=== PATIENT | female | born 1945 | race Caucasian/White ===

== ENCOUNTER 2016-11-25 08:33 | Inpatient (IN) | payer OTHER ==
[2016-11-25] MEDS ORDERED: NS 1,000 ML IV ONE (09:26)
[2016-11-25] MEDS ORDERED: MORPHINE IV ONE (09:26)
[2016-11-25] MEDS ORDERED: ZOFRAN IV ONE (09:26)
--- NOTE | 2016-11-25 09:59 | PROVIDER DOCUMENTATION ---
Addendum entered and electronically signed by Katie Claros Scribe 11:12: Departure - Departure Time of Disposition Order: 11:11 DIAGNOSIS: Ureteral stone, Hydronephrosis of left kidney Disposition: ADMITTED INPATIENT 09 Condition: Stable Referrals: Kenroy Neal MD [Primary Care Provider] - Original Note: HPI-Abdominal Pain/GI Problem - General Source: patient - History of Present Illness-ABD Abdominal Pain Onset Location: reports: LLQ, epigastric Pain Radiation: reports: flank Quality of Pain: reports: sharp Severity in ED: reports: mild Onset/Duration: reports: this morning Timing: reports: still present Activities at Onset: reports: light activity Modifying Factors: improves with: massage, movement, palpation Associated Symptoms: reports: vomiting Last BM: unsure Dark Stools Present?: reports: none noticed Bruising or Bleeding Gums?: No Similar Symptoms Previously?: No Recently seen or treated by another doctor?: No <Katie Claros - Last Filed: 11/25/16 11:11> <Hiro Mistry - Last Filed: 11/25/16 11:22> - General Chief Complaint: Abdominal Pain Stated Complaint: back pain, threwing up Time Seen by Provider: 11/25/16 09:02 Allergies/Adverse Reactions: Patient Allergies Allergy/AdvReac Type Severity Reaction Status Date / Time Sulfa (Sulfonamide Allergy RASH Verified 11/25/16 09:09 Antibiotics) - History of Present Illness-ABD Nature of Presenting Problems: Pt is a 71 yof who came to the ED with a cc of back and abdominal pain. Pt reports she got out of bed at 5:30 this morning with back and abdominal pain. Pt reports she had her gallbladder removed. (Katie Claros) Review of Systems - Adult - REVIEW OF SYSTEMS - ADULT Constitutional: denies: chills, fever Eyes: denies: blurred vision, double vision Ears, Nose, Mouth & Throat: reports: no symptoms reported Cardiovascular: denies: orthopnea, poor circulation Respiratory: reports: no symptoms reported Gastrointestinal: reports: abdominal pain, vomiting. denies: difficulty swallowing, frequent heartburn, nausea Genitourinary: reports: flank pain. denies: hematuria, hesitency Musculoskeletal: denies: joint pain, joint swelling Integumentary: reports: no symptoms reported Neurological: reports: no symptoms reported Psychiatric: reports: no symptoms reported Endocrine: reports: no symptoms reported Hematologic/Lymphatic: reports: no symptoms reported Allergic/Immunologic: reports: no symptoms reported All Other Systems: Reviewed and Negative <HarlanKatie Filed: 11/25/16 11:11> Past History - Adult - PAST MEDICAL HISTORY-ADULT Review of Records: reports: Old Records Reviewed, Nursing Assessment Review Major Childhood Illnesses: reports: denies history Cardiovascular: reports: hyperlipidemia Respiratory: reports: denies history Gastrointestinal: reports: denies history Obstetrical/Gynecological: reports: denies history Genitourinary: reports: denies history Musculoskeletal: reports: denies history Neurological: reports: denies history Endocrine/Immune: reports: thyroid disorder Other Conditions: reports: denies history - IMMUNIZATION STATUS Childhood Immunizations: See Nurse Assessment Flu Vaccine: See Nurse Assessment - FAMILY HISTORY Family History: reviewed, not pertinent <HarlanKatie Filed: 11/25/16 11:11> Physical Exam-General - PHYSICAL EXAM-ADULT Initial Vital Signs Reviewed: Yes - CONSTITUTIONAL General Appearance: appears well, alert, no apparent distress - EYES Eyes: PERRL/EOMI, pink conjunctivae - HEAD, EARS, NOSE, MOUTH & THROAT HENMT: normocephalic/atraumatic, moist mucous membranes, normal ENT inspection - NECK Neck: non-tender, full range of motion, normal inspection - RESPIRATORY Respiratory: chest non-tender, lungs clear, normal breath sounds - CARDIOVASCULAR Cardiovascular: normal peripheral pulses, regular rate, rhythm, no edema - GASTROINTESTINAL (ABDOMEN) Abdominal Exam: normal bowel sounds, soft, tenderness - LYMPHATIC Lymphatic: no adenopathy - MUSCULOSKELETAL Back Exam: normal inspection, no CVA tenderness, no vertebral tenderness Extremity: normal range of motion, non-tender, normal gait - SKIN Integumentary: normal color, normal turgor, warm/dry - NEUROLOGIC Neurologic: grossly normal, no motor/sensory deficits - PSYCHIATRIC Psych/Mental Status: normal mood/affect, normal thought content, normal thought process, oriented x 3 <Katie Claros Filed: 11/25/16 11:11> Progress - CT/MRI 1 CT Study: Renal Stone CT Results: 3.2mm stone at left uvj with mild left hydro <Katie Claros - Last Filed: 11/25/16 11:11> - REASSESSMENT Reassessment #1 Time Reassessed: 10:57 Status: worsening (Pt is still in pain and she has hydro on CT. Will give IV Dilaudid and will admit.) - CONSULTS/PCP/HOSPITALIST Notification Time Discussed: 11:20 Reason/Comments: Admit to Dr. Arzate Consult Disposition: Will see in ED, Admit <Javier Mistryshola X - Last Filed: 11/25/16 11:22> - PLAN OF CARE/RESULTS Progress/Plan/Lab Results: Vital Signs - 24 hr 11/25/16 08:35 Temperature 97.5 F L Pulse Rate 70 Respiratory 18 Rate Blood Pressure 157/71 O2 Sat by Pulse 99 Oximetry Orders Category Date Time Status Saline Loc DIRECTED Care 11/25/16 09:26 Active NPO Diet 11/25/16 09:26 Active RENAL STONE SEARCH [CT] Stat Exams 11/25/16 09:26 Taken AMYLASE [CHEM] Stat Lab 11/25/16 09:48 Ordered CBC WITH ELECTRONIC DIFF [HEME] Stat Lab 11/25/16 09:48 Ordered COMPREHENSIVE METABOLIC PANEL [CHEM] Stat Lab 11/25/16 09:48 Ordered LIPASE [CHEM] Stat Lab 11/25/16 09:48 Ordered MAGNESIUM [CHEM] Stat Lab 11/25/16 09:48 Ordered URINALYSIS W/POSS RFLX CULT [URINALYSIS] Stat Lab 11/25/16 09:48 Ordered 0.9% Sodium Chloride Inj [Ns] 1,000 ml Med 11/25/16 09:26 Active IV 999 mls/hr Morphine Med 11/25/16 09:26 Discontinued 4 mg IV NOW ONE Ondansetron [Zofran] Med 11/25/16 09:26 Discontinued 4 mg IV NOW ONE (Katie Claros) Laboratory Results - last 24 hr 11/25/16 11/25/16 11/25/16 09:45 09:45 09:45 WBC 10.21 RBC 4.33 Hgb 13.1 Hct 39.4 MCV 91.0 MCH 30.3 MCHC 33.2 RDW Std Deviation 12.8 Plt Count 302 MPV 11.0 H Immature Gran % (Auto) 0.2 Neut % (Auto) 82.9 H Lymph % (Auto) 12.4 L Jewell % (Auto) 3.5 Eos % (Auto) 0.7 Baso % (Auto) 0.3 Immature Gran # (Auto) 0.02 Neut # (Auto) 8.46 H Lymph # (Auto) 1.27 Jewell # (Auto) 0.36 Eos # (Auto) 0.07 Baso # (Auto) 0.03 Sodium 141 Potassium 3.8 Chloride 101 Carbon Dioxide 24 L Anion Gap 16 BUN 20 Creatinine 1.2 H Estimated GFR/1.73 m2 44 BUN/Creatinine Ratio 17 Glucose 140 H Calculated Osmolality 286 Calcium 10.1 Magnesium 1.9 Total Bilirubin 0.45 AST 38 H ALT 33 Alkaline Phosphatase 64 Total Protein 7.8 Albumin 4.6 Globulin 3.2 Albumin/Globulin Ratio 1.4 Amylase 73 Lipase 22 Urine Source CLEAN CATCH Urine Color YELLOW Urine Turbidity CLEAR Urine pH 6.0 Ur Specific Merrill 1.015 Urine Protein NEGATIVE Ur Glucose (Stick) NEGATIVE Ur Ketones (Stick) TRACE A Urine Blood TRACE A Urine Nitrite NEGATIVE Urine Bilirubin NEGATIVE Urobilinogen Dipstick NORMAL Urine Leukocytes TRACE A Urine WBC (Auto) <10 Urine RBC (Auto) <10 U Epithel Cells (Auto) <10 Urine Bacteria (Auto) NEGATIVE Vital Signs Temp Pulse Resp BP Pulse Ox 11/25/16 08:35 97.5 F L 70 18 157/71 99 Sulfa (Sulfonamide Antibiotics) Allergy (Verified 11/25/16 09:09) RASH Dietary Diet NPO Start Sat Nov 25 925 Laboratory 11/25/16 11/25/16 11/25/16 09:45 09:45 09:45 WBC 10.21 RBC 4.33 Hgb 13.1 Hct 39.4 MCV 91.0 MCH 30.3 MCHC 33.2 RDW Std Deviation 12.8 Plt Count 302 MPV 11.0 H Immature Gran % (Auto) 0.2 Neut % (Auto) 82.9 H Lymph % (Auto) 12.4 L Jewell % (Auto) 3.5 Eos % (Auto) 0.7 Baso % (Auto) 0.3 Immature Gran # (Auto) 0.02 Neut # (Auto) 8.46 H Lymph # (Auto) 1.27 Jewell # (Auto) 0.36 Eos # (Auto) 0.07 Baso # (Auto) 0.03 Sodium 141 Potassium 3.8 Chloride 101 Carbon Dioxide 24 L Anion Gap 16 BUN 20 Creatinine 1.2 H Estimated GFR/1.73 m2 44 BUN/Creatinine Ratio 17 Glucose 140 H Calculated Osmolality 286 Calcium 10.1 Magnesium 1.9 Total Bilirubin 0.45 AST 38 H ALT 33 Alkaline Phosphatase 64 Total Protein 7.8 Albumin 4.6 Globulin 3.2 Albumin/Globulin Ratio 1.4 Amylase 73 Lipase 22 Urine Source CLEAN CATCH Urine Color YELLOW Urine Turbidity CLEAR Urine pH 6.0 Ur Specific Merrill 1.015 Urine Protein NEGATIVE Ur Glucose (Stick) NEGATIVE Ur Ketones (Stick) TRACE A Urine Blood TRACE A Urine Nitrite NEGATIVE Urine Bilirubin NEGATIVE Urobilinogen Dipstick NORMAL Urine Leukocytes TRACE A Urine WBC (Auto) <10 Urine RBC (Auto) <10 U Epithel Cells (Auto) <10 Urine Bacteria (Auto) NEGATIVE Vital Signs Temp Pulse Resp BP Pulse Ox 11/25/16 08:35 97.5 F L 70 18 157/71 99 Sulfa (Sulfonamide Antibiotics) Allergy (Verified 11/25/16 09:09) RASH Dietary Diet NPO Start Sat Nov 25 925 Laboratory 11/25/16 11/25/16 11/25/16 09:45 09:45 09:45 WBC 10.21 RBC 4.33 Hgb 13.1 Hct 39.4 MCV 91.0 MCH 30.3 MCHC 33.2 RDW Std Deviation 12.8 Plt Count 302 MPV 11.0 H Immature Gran % (Auto) 0.2 Neut % (Auto) 82.9 H Lymph % (Auto) 12.4 L Jewell % (Auto) 3.5 Eos % (Auto) 0.7 Baso % (Auto) 0.3 Immature Gran # (Auto) 0.02 Neut # (Auto) 8.46 H Lymph # (Auto) 1.27 Jewell # (Auto) 0.36 Eos # (Auto) 0.07 Baso # (Auto) 0.03 Sodium 141 Potassium 3.8 Chloride 101 Carbon Dioxide 24 L Anion Gap 16 BUN 20 Creatinine 1.2 H Estimated GFR/1.73 m2 44 BUN/Creatinine Ratio 17 Glucose 140 H Calculated Osmolality 286 Calcium 10.1 Magnesium 1.9 Total Bilirubin 0.45 AST 38 H ALT 33 Alkaline Phosphatase 64 Total Protein 7.8 Albumin 4.6 Globulin 3.2 Albumin/Globulin Ratio 1.4 Amylase 73 Lipase 22 Urine Source CLEAN CATCH Urine Color YELLOW Urine Turbidity CLEAR Urine pH 6.0 Ur Specific Merrill 1.015 Urine Protein NEGATIVE Ur Glucose (Stick) NEGATIVE Ur Ketones (Stick) TRACE A Urine Blood TRACE A Urine Nitrite NEGATIVE Urine Bilirubin NEGATIVE Urobilinogen Dipstick NORMAL Urine Leukocytes TRACE A Urine WBC (Auto) <10 Urine RBC (Auto) <10 U Epithel Cells (Auto) <10 Urine Bacteria (Auto) NEGATIVE (Hiro Mistry) Departure <Katie Claros - Last Filed: 11/25/16 11:11> - Departure Time of Disposition Order: 10:58 Certified Medical Emergency: Emergent <Hiro Mistry - Last Filed: 11/25/16 11:22> - Departure DIAGNOSIS: Ureteral stone, Hydronephrosis of left kidney Disposition: ADMITTED INPATIENT 09 Condition: Stable Referrals: Kenroy Neal MD [Primary Care Provider] - Attestation - Scribe Verification/Attestation Scribe:: Katie Claros Acting as Scribe for:: Hiro Mistry Scribe documention review:: This chart was documented by a scribe and accurately reflects the service the provider performed and the decisions made by the provider. <Katie Claros - Last Filed: 11/25/16 11:11> Physician Attestation
[2016-11-25 10:03] LABS: MANUAL DIFF NEEDED? NO; URINE MICRO REVIEW NEEDED? NO; URINE SOURCE CLEAN CATCH
[2016-11-25 10:07] LABS: BASO% 0.3 % (0.0-0.8); EOS# 0.07 X1000 (0.0-0.7); EOS% 0.7 % (0.0-10.0); HEMATOCRIT 39.4 % (37.0-47.0); HEMOGLOBIN 13.1 g/dL (12.0-16.0); IMM GRAN# 0.02 X1000 (0.0-0.04); IMM GRAN% 0.2 % (0.0-0.5); LYMPH# 1.27 X1000 (1.2-3.4); LYMPH% 12.4 % (20.5-51.1); MCH 30.3 PG (27-31); MCHC 33.2 g/dL (33-37); MONO# 0.36 X1000 (0.11-0.59); MONO% 3.5 % (1.7-9.3); NEUT% 82.9 % (42.2-75.2); PLT 302 X1000 (130-400); RBC 4.33 XMIL (4.2-5.4)
[2016-11-25 10:08] LABS: BILIRUBIN URINE NEGATIVE (NEGATIVE); BLOOD URINE TRACE (NEGATIVE); COLOR YELLOW; GLUCOSE URINE NEGATIVE (NEGATIVE); LEUKOCYTES URINE TRACE (NEGATIVE); NITRITE URINE NEGATIVE (NEGATIVE); PROTEIN URINE NEGATIVE (NEGATIVE); SP GRAVITY URINE 1.015; TURBIDITY URINE CLEAR (CLEAR); UROBILINOGEN URINE NORMAL (NORMAL)
[2016-11-25 10:09] LABS: UR EPITHELIAL CELLS <10 /HPF (<10); URINE BACTERIA NEGATIVE /HPF; URINE CULTURE NEEDED? YES; URINE RBC <10 /HPF (<10); URINE WBC <10 /HPF (<10)
[2016-11-25 10:26] LABS: ALBUMIN 4.6 g/dL (3.5-5.0); CALCIUM 10.1 mg/dL (8.8-10.2); MAGNESIUM 1.9 mg/dL (1.5-2.7); POTASSIUM 3.8 mmol/L (3.5-5.1); TOTAL BILIRUBIN 0.45 mg/dL (0.20-1.00); TOTAL PROTEIN 7.8 g/dL (6.3-8.3)
[2016-11-25] MEDS ORDERED: ROCEPHIN 1 GM/NS 50 ML IV ONE (10:29)
--- NOTE | 2016-11-25 10:51 | Diag Imaging Result Document ---
PROCEDURE NAME: RENAL STONE SEARCH - 11/25/2016 CT ABDOMEN AND PELVIS WITHOUT CONTRAST/RENAL STONE PROTOCOL: COMPARISON: None available. FINDINGS: There are calcified granulomata in the liver and the spleen. There has been a previous cholecystectomy. There is a 3.2 mm obstructing stone at the left UVJ with associated mild left hydroureteronephrosis. There is probably a second punctate nonobstructing intrarenal stone in the left kidney. The kidneys are unremarkable, otherwise. The urinary bladder is grossly unremarkable. There has been a previous hysterectomy. There is extensive sigmoid diverticulosis coli but no evidence of diverticulitis. There is a fair amount of stool in the colon, but there is no significant bowel distention. No significant free abdominal fluid or free gas is identified. The remainder of the solid viscera of the abdomen and pelvis and the remainder of the GI tract is essentially unremarkable. IMPRESSION: 1. 3.2 mm obstructing stone at the left UVJ with associated mild left hydroureteronephrosis. 2. Other incidental/nonacute findings detailed above.
[2016-11-25] MEDS ORDERED: DILAUDID IV ONE (10:54)
[2016-11-25] MEDS ORDERED: PHENERGAN IV ONE (11:19)
[2016-11-25] MEDS ORDERED: SODIUM CHLORIDE 0.9% INJ ONE (11:19)
--- NOTE | 2016-11-25 13:27 | HISTORY AND PHYSICAL ---
HISTORY OF PRESENT ILLNESS: Ms. Salazar apparently woke up at 5:30 this morning with left flank pain and pretty severe stomach cramps. She came to the emergency room where CT stone search showed a left sided kidney stone. She was given some pain medicine and actually is unable to give much history at this point. Her is at the bedside. She has a 3.2 mm obstructing stone at the left UVJ associated with left hydroureteronephrosis. There is some granulomata seen in the liver and spleen. There has been a previous cholecystectomy. Urinary bladder is grossly normal. She has had a previous hysterectomy. PAST MEDICAL HISTORY: 1. Hyperlipidemia. 2. Hypothyroidism. 3. Osteoarthritis. 4. Gastroesophageal reflux disease. 5. Hemochromatosis. PAST SURGICAL HISTORY: Status post appendectomy, cholecystectomy, and hysterectomy. SOCIAL HISTORY: Negative for tobacco and does drink wine every night. She is and has 1 daughter. FAMILY HISTORY: Both mother and father had history of cancer. REVIEW OF SYSTEMS: General: No weight gain or loss. No fever or chills. HEENT: Unremarkable. Respiratory: No increased work of breathing or dyspnea. Cardiovascular: No chest pain or tachy palpitations. GI/: Unremarkable. Musculoskeletal/Neurologic: No significant complaints. PHYSICAL EXAMINATION: VITAL SIGNS: Temperature 97.5 degrees, pulse 70, respirations 18, blood pressure 157/71. HEENT: Pupils were equal and round. CVP less than 6 cm. LUNGS: Clear in all lung martinez. CARDIOVASCULAR: Regular rhythm and rate without murmur or S3. ABDOMEN: Soft. SKIN: Warm and dry. Weight 140 pounds. She has left costovertebral angle tenderness but is diminished with her pain medicine. LABORATORY DATA: White count 67747, hematocrit 39, platelet count 302,000. Sodium 141, potassium 3.8, chloride 101, bicarb 24, BUN 20, creatinine 1.2. Liver functions unremarkable. Urinalysis unremarkable. ASSESSMENT AND PLAN: 1. Left-sided costovertebral angle pain consistent with a left UVJ stone about 3.2, it should pass. We will give her fluids, give her antiemetics and analgesia. We will ask Urology, Dr. Arambula to follow. 2. History of hypothyroidism. 3. History of hemochromatosis her labs appear stable. 4. Osteoarthritis. 5. Gastroesophageal reflux. PLAN: I will probably put her on a little bit of Levaquin. We will run fluids at normal saline 125 mL an hour for now.
[2016-11-25] MEDS ORDERED: ZOFRAN IV PRN (15:32)
[2016-11-25] MEDS ORDERED: TYLENOL PO PRN (15:32)
[2016-11-25] MEDS: NORCO-7.5 PO PRN ×2 (16:50→20:57)
[2016-11-25] MEDS: NS 1,000 ML IV SCH (18:37)
[2016-11-25] MEDS: LEVAQUIN 500 MG/D5W 100 ML IV SCH (18:37)
[2016-11-25] MEDS: ZOCOR PO SCH (20:24)
[2016-11-26] MEDS: NORCO-7.5 PO PRN ×6 (01:17→22:15)
[2016-11-26] MEDS ORDERED: SYNTHROID PO SCH (07:00)
[2016-11-26] MEDS: NS 1,000 ML IV SCH ×4 (11:30→22:16)
[2016-11-26] MEDS: LEVAQUIN 500 MG/D5W 100 ML IV SCH (15:11)
--- NOTE | 2016-11-26 16:47 | CONSULTATION ---
DATE OF CONSULTATION: 11/26/2016 HISTORY OF PRESENT ILLNESS: Mrs. Salazar came to me by way of Dipak Arzate who is the referral doctor to the emergency room where renal stone search revealed a 3 mm distal left ureteral stone with hydro. I reviewed those films. In my opinion there is more hydro than one would expect this small 3 mm stone. She may have some clot there but I doubt that there is issues at this time. Around 24 hours from her admission she has not passed the stone, continues to have flank pain. To that end we will plan to resolve this tomorrow if she has not passed it by the morning. The patient agrees with the same and does want to get it dealt with. ALLERGIES: SULFA. MEDICATIONS: Come from her medication list and include cholesterol medicine and thyroid medicine, something for arthritis periodically taken. MEDICAL HISTORY: Hyperlipidemia, hypothyroidism, osteoarthritis, GERD, and right now with hiccups and a history of hemochromatosis. PAST SURGICAL HISTORY: She had a hysterectomy with subsequent bilateral oophorectomy, she had a cholecystectomy at which time they also did an appendectomy. No issues with those interventions, no bleeding issues. SOCIAL HISTORY: She is a nonsmoker, rare occasional drink and she is and has a daughter lives at home and has support about her. No drugs. Does no longer work. She is retired. 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 FAMILY HISTORY: Both mother and father had colon cancer. Father lived into his 90s and I think the mother of a stroke. REVIEW OF SYSTEMS: HEENT: Lenses, otherwise negative history. Constitutional: No acute distress at this time. Cardiac: No history of high blood pressure. She has hypercholesterolemia. Pulmonary: Negative history. GI: See past surgical history. : See history of present illness. Musculoskeletal: Kind of diffuse joint arthritis. Otherwise negative history. Endocrine History: See above, thyroid and cholesterol. Hematologic: Hemochromatosis. No bleeding issues, immunity. MEDICATION ALLERGY: OTHERWISE NONE. Psychologic: Negative history. PHYSICAL EXAMINATION: Vital Signs: Have been stable throughout her stay. There is no hypertension here. Pulses regular. No respiratory distress. Head and Neck: Without lump or mass. Lenses noted. Lungs: Clear to auscultation. Heart: Had a regular rate and rhythm. No murmurs. Abdomen and flanks: With left flank tenderness on deep pressure, maybe some left lower quadrant tenderness with deep pressure. No masses, no guarding, no acute abdomen. Pelvic and Rectal: Not done. Extremities: Moves her upper and lower extremities normally. Neurologic: She is alert, oriented and pleasant. IMPRESSIONS: 1. She has left flank pain/renal colic. 2. She has a left distal ureterovesical junction stone and I suspect given the degree of hydronephrosis there she has some distal clot as well. There are no stones in the kidneys. 3. She has hydroureteronephrosis. 4. See the medical illnesses as described. PLAN: I will call nursing supervisors. If she can get her on the schedule will consider cystoscopy and ureteroscopy and stone manipulation tomorrow. Patient is to have the nurses call me she passes the stone before then.
--- NOTE | 2016-11-26 17:41 | PROGRESS NOTE ---
DATE: 11/26/2016 SUBJECTIVE: Ms. Salazar is saying she is not hurting as much in the left flank as she is in the lower back, but she has suffered from lower back arthralgia before. She thinks it is maybe the bed but not sure. No gross hematuria. She has not had to take any pain medicine recently. Not sure if she has passed a stone or not. OBJECTIVE: Temperature is 98.6, pulse 80, respirations 18, blood pressure 132/49. Pupils are equal and round. CVP less than 6 cm. Lungs: Clear in all lung martinez. Cardiovascular: Regular rate and rhythm without murmur or S3. Good urine output. ASSESSMENT AND PLAN: 1. Ureterovesical junction stone of less than 4 cm. It is hard to know if she has passed it. We will give it a little more time and give her more fluid. If it is clearly not passed by the morning, then Dr. Arambula plans on doing ureteroscopy and maybe stone retrieval. 2. History of osteoarthritis and low back pain. 3. Hemochromatosis, aware. 4. History of gastroesophageal reflux. Continue present treatment. 5. She is on IV Levaquin. No sign of active infection. She is on the Levaquin prophylactically.
[2016-11-26] MEDS: ZOCOR PO SCH (22:16)
[2016-11-27] MEDS: NS 1,000 ML IV SCH ×3 (00:09→14:12)
[2016-11-27] MEDS: NORCO-7.5 PO PRN ×3 (03:44→12:10)
[2016-11-27] MEDS: LEVAQUIN 500 MG/D5W 100 ML IV SCH (15:55)
[2016-11-27] MEDS ORDERED: XYLOCAINE 2% JELLY UROJECT ONE (15:59)
[2016-11-27] MEDS ORDERED: DIPRIVAN 1% ONE (16:42)
[2016-11-27] MEDS ORDERED: FENTANYL ONE (16:42)
[2016-11-27 16:55] VITALS: BP 131/62
[2016-11-27] MEDS ORDERED: ZOFRAN ONE (17:04)
[2016-11-27] MEDS ORDERED: XYLOCAINE-MPF 2% ONE (17:04)
[2016-11-27] MEDS ORDERED: ROBINUL ONE (17:04)
[2016-11-27] MEDS ORDERED: LR 1,000 ML ONE (17:04)
[2016-11-27] MEDS ORDERED: ANESTHESIA PB SET 88 IN 5742 ONE (17:06)
[2016-11-27] MEDS ORDERED: EXTENSION SET 32 IN 4522 ONE (17:06)
--- NOTE | 2016-11-27 17:52 | OPERATIVE NOTE ---
PROCEDURE DATE: 11/27/2016 PREOPERATIVE DIAGNOSES: 1. Left distal ureteral calculus. 2. Hydronephrosis. 3. Flank pain. POSTOPERATIVE DIAGNOSIS: 1. Left distal ureteral calculus. 2. Hydronephrosis. 3. Flank pain. 4. Spontaneous passage of distal ureteral stone. 5. Bruising about the left distal ureter. SURGEON: Napoleon Arambula DO ANESTHESIA: LMA, postop 2% lidocaine gel. PROCEDURE PERFORMED: 1. Cystoscopy. 2. Ureteroscopy. 3. Placement of a double-J stent. COMPLICATIONS: None. ASSISTANTS: OR staff. Rigo. DRAINS: A double-J stent 4.8-Wallisian x 22-30 cm in dimension. BLOOD LOSS, HEMATURIA, COMPLICATIONS: None. SPECIMEN: None. DISPOSITION: Stable. FINDINGS: As described. COURSE OF PROCEDURE: The patient was placed in the dorsal lithotomy position. Prepped and draped routine. Time-out procedure performed upon which ureteroscopy followed. Distal ureter had bruising about it on the trigone. It was normally placed. Upon investigating the distal ureter it was narrow there, was fairly snug in that region and there was erythema just within after passing the 1st centimeter or so the distal ureteral orifice. The ureter was flesh tone and normal in color all way to the UP junction. Wire was left in place. Ureteroscope was backed away. Distal ureter again reinspected with like and similar finding. Having said that the 0.035 wire was secured to a drape and all instrumentation removed from the patient except for cystoscope 21-Wallisian in size which was inserted. Bladder viewed in its entirety showed both ureters in normal position, wire normal position and no intravesical tumors, tumors, stones or polyps within the intravesical bladder. After this the scope being on the wire a 4.8- Wallisian by 22-30 cm double-J stent was positioned over the wire up into the kidney upon which a pressure was applied and wire removed leaving curls in the kidney and in the urinary bladder consistent with acceptable position. The distal end was slightly repositioned distal so there was a complete curl. The procedure was well tolerated. Bladder was drained of its contents. Lidocaine, Uro-jet was instilled in the urethra postop and confirmatory films for stent position were obtained. Family is advised of the favorable outcome. Patient can be discharged at the discretion of Dr. Ragland. I did advise him of the favorable outcome of the case and that I will see the patient around a week for cystoscopy and stent removal.
--- NOTE | 2016-11-27 23:12 | DISCHARGE SUMMARY ---
ADMISSION DATE: 11/25/2016 DISCHARGE DATE: 11/27/2016 HOSPITAL COURSE: Mrs. Salazar was admitted on 11/25/2016. She woke up at 5:30 that morning with left flank pain. Found a lower 3 mm stone. Continued to have pain, watched her a good 48 hours with liberal IV fluids. Pain continued, so Dr. Arambula took her for cysto-ureteroscopy. At that time, he found the stone had moved. He could see where the stone was at the UVJ junction. He did put a double-J stent in, and she was requesting to go home. So, we will get her ready go home. I will give her some medicine for pain. FOLLOWUP: Follow up with Dr. Arambula to remove the stent in a week. DISCHARGE MEDICATIONS: We will give her some Twilight 7.5 mg to take q.4 hours p.r.n. pain, Synthroid 100 mcg daily, Zocor 20 mg a day.
--- NOTE | 2016-11-28 08:37 | Diag Imaging Result Document ---
PROCEDURE NAME: FLUROSCOPY CYSTO - 11/27/2016 RETROGRADE PYELOGRAM 17 IMAGES: FINDINGS: Ureteroscopy was performed on the left by Dr. Arambula with placement of ureteral stent. No contrast was administered. IMPRESSION: Left ureteral stent placement.
== END 2016-11-27 18:24 | disposition home or self-care (01) | DRG 694 ==
LOC: ED 08:33 → EDIPHOLD 13:20 → 4N 18:36
PROVIDERS: ATTEND Emergency Medicine
PROC: 0T778DZ Dilation of Left Ureter with Intraluminal Device, Via Natural or Artificial Opening Endoscopic (ICD-10-PCS; principal; 2016-11-27 15:55)
DX: N13.2 Hydronephrosis with renal and ureteral calculous obstruction (principal); E03.9 Hypothyroidism, unspecified; E83.119 Hemochromatosis, unspecified; E78.00 Pure hypercholesterolemia, unspecified; K21.9 Gastro-esophageal reflux disease without esophagitis; M19.90 Unspecified osteoarthritis, unspecified site; Z79.899 Other long term (current) drug therapy; Z80.9 Family history of malignant neoplasm, unspecified; Z80.0 Family history of malignant neoplasm of digestive organs; Z82.3 Family history of stroke
CPT/HCPCS: 74176; 76000; 80053; 81001; 82150; 83690; 83735; 85025; 87088; 96365; 96367; 96375; J0696; J1170; J2270; J2405; J2550; J3010; J7030; J7120